=== PATIENT | female | born 2000 ===

== ENCOUNTER 2024-02-02 10:01 | Inpatient (IN) | payer BC ==
[2024-02-02] MEDS ORDERED: Butorphanol 2 MG/ML SDV IVPUSH PRN (10:06)
[2024-02-02] MEDS ORDERED: Methylergonovine 0.2 MG/1 ML Amp IM PRN (10:06)
[2024-02-02] MEDS ORDERED: Sodium Chloride 0.9% 2.5 ML Syringe FLUSH PRN (10:06)
[2024-02-02] MEDS ORDERED: Misoprostol 200 MCG Tab PO PRN (10:06)
[2024-02-02] MEDS ORDERED: Ondansetron 4 MG/2 ML SDV IVPUSH PRN (10:06)
[2024-02-02] MEDS ORDERED: Carboprost Tromethamine 250 MCG/1 mL Vial IM PRN (10:06)
[2024-02-02] MEDS ORDERED: Sodium Chloride 0.9% 20 ML SDV IV PRN (10:06)
[2024-02-02] MEDS ORDERED: Tranexamic Acid IN NACL,ISO-OS 1,000 MG in Premix Bag 1 BAG IV PRN (10:06)
[2024-02-02] MEDS ORDERED: Water For Irrigation,Sterile 1,000 ML Container IRR PRN (10:06)
[2024-02-02] MEDS ORDERED: Sodium Chloride 0.9% 10 ML Syringe FLUSH PRN (10:06)
[2024-02-02] MEDS ORDERED: Lidocaine 1% 50 ML MDV INJECT PRN (10:06)
[2024-02-02] MEDS ORDERED: Terbutaline 1 MG/ML SDV SUBCUT PRN (10:11)
[2024-02-02] MEDS ORDERED: Oxytocin/0.9 % Sodium Chloride 30 UNIT/500 ML BAG IV SCH (10:15)
[2024-02-02] MEDS: Lactated Ringers 1,000 ML IV SCH (10:33)
[2024-02-02] MEDS ORDERED: Phenylephrine HCl In 0.9% NaCl 1 MG/10 ML Syringe ONE (11:02)
[2024-02-02] MEDS ORDERED: Bupivacaine 0.5% 10 ML SDV ONE (11:02)
[2024-02-02] MEDS ORDERED: Ropivacaine HCl/PF 200 ML ONE (11:02)
[2024-02-02] MEDS: Ropivacaine HCl/PF 400 MG in Premix Bag 1 BAG EPIDUR SCH (11:25)
[2024-02-02] MEDS ORDERED: Phenylephrine HCl In 0.9% NaCl 1 MG/10 ML Syringe IVPUSH PRN (11:38)
[2024-02-02] MEDS ORDERED: ePHEDrine 50 MG/ML SDV IVPUSH PRN ×2 (11:38)
[2024-02-02] MEDS: Oxytocin/0.9 % Sodium Chloride 30 UNIT/500 ML BAG IV SCH (14:09)
[2024-02-02 15:01] LABS: HEMATOCRIT 44.5 % (37.0-47.0); HEMOGLOBIN 15.2 g/dL (12.0-16.0); IMMATURE GRAN ABSOLUTE AUTO 0.09 K/uL (0.00-0.05); IMMATURE GRAN PERCENT AUTO 0.7 % (0.0-0.4); MEAN CORPUSCULAR HGB CONC 34.2 g/dL (32.0-36.0); MEAN CORPUSCULAR VOLUME 87.8 fL (83.0-99.0); MEAN PLATELET VOLUME 13.7 fL (9.4-12.3); PLATELET COUNT,PLT 129 K/uL (150-400); RED BLOOD CELL COUNT 5.07 M/uL (4.10-5.30); WHITE BLOOD CELL COUNT,WBC 13.37 K/uL (3.9-11.3)
[2024-02-02 15:15] LABS: PH,UMBILICAL ARTERIAL 7.159 (7.18-7.38); PH,UMBILICAL VENOUS 7.19 (7.25-7.45)
[2024-02-02] MEDS: Ampicillin/Sulbactam Na 3 GM in Sodium Chloride 0.9% 100 ML IV ONE (16:01)
[2024-02-02] MEDS: Lanolin 100% Cream 7 GM Tube TOP PRN (18:55)
[2024-02-02] MEDS: Benzocaine/Menthol 20%-0.5% Spray 78 GM Cannister TOP PRN (18:55)
[2024-02-02] MEDS: Witch Hazel Medicated Pads 40/Jar TOP PRN (18:55)
[2024-02-02] MEDS: Acetaminophen 500 MG Tab PO PRN (21:15)
[2024-02-02] MEDS: Ampicillin/Sulbactam Na 1.5 GM in Sodium Chloride 0.9% 50 ML IV SCH (21:23)
[2024-02-03 06:43] LABS: HEMATOCRIT 39.2 % (37.0-47.0)
[2024-02-03] MEDS: Docusate Sodium 100 MG Cap PO PRN (09:50)
[2024-02-03] MEDS: Ibuprofen 800 MG Tab PO PRN (14:40)
== END 2024-02-03 17:17 | disposition home or self-care (01) | DRG 560 ==
LOC: MW.OBCHECK 10:01 → MW.OB 10:01 → MW.OBCHECK 14:44 → OBSVTOIN 14:44 → MW.OB 20:00
PROVIDERS: ADMIT Obstetrics & Gynecology; ATTEND Obstetrics & Gynecology
PROC: 10E0XZZ Delivery of Products of Conception, External Approach (ICD-10-PCS; principal; 2024-02-02)
PROC: 0KQM0ZZ Repair Perineum Muscle, Open Approach (ICD-10-PCS; 2024-02-02)
PROC: 3E0R3BZ Introduction of Anesthetic Agent into Spinal Canal, Percutaneous Approach (ICD-10-PCS; 2024-02-02)
PROC: 00HU33Z Insertion of Infusion Device into Spinal Canal, Percutaneous Approach (ICD-10-PCS; 2024-02-02)
DX: O48.0 Post-term pregnancy (principal); O70.1 Second degree perineal laceration during delivery; Z37.0 Single live birth; O77.0 Labor and delivery complicated by meconium in amniotic fluid; Z3A.40 40 weeks gestation of pregnancy
CPT/HCPCS: 36415; 51702; 59025; 59409; 82803; 85014; 85018; 85027; 86592; 86850; 86900; 86901; A9270-GY; J0295; J0665; J2371; J2590; J2795; J3490; J7120